=== PATIENT | male | born 1950 | race Two or more races ===

== ENCOUNTER 2020-09-13 05:47 | Day surgery (SDC) | payer MEDICARE, MEDICAID ==
--- NOTE | 2020-08-04 11:34 | Opthalmology H&P ---
Ophthalmology H&P H&P Chief Complaint: decreased vision in right eye HPI Vision Affects Ability to: read, focus/use eyes together, manage personal affairs Past Ocular History: retinal problems - NPDR OU HPI Narrative Blurry vision Exam Visual Acuity: OD 20/60 OS 20/50 Tension: OD 13 OS 16 Eye Exam: normal OU: external exam, palpebral fissure-width, marginal reflex distance, levator function, corneas, anterior chambers; findings: lens - PSC/NS Cataract OD, fundus exam - NPDR OU Assessment/Plan Treatment Plan: cataract extraction w/ lens implant Goals of Treatment: improvement of vision, enhance quality of life Attestation Attestation The risks and benefits of the surgery as well as alternative procedures were explained to the patient in detail. Luciano Ibanez MD Aug 04, 2020 11:34
--- NOTE | 2020-08-04 11:35 | Pre-Procedure Note/Attestation ---
Pre-Procedure Note/Attestation Complete Prior to Procedure Planned Procedure: right Procedure Narrative: Cataract extraction with IOL implant right eye Indications for Procedure Pre-Operative Diagnosis: Posterior subcapsular/ nuclear sclerotic cataract right eye Attestation I attest that I discussed the nature of the procedure; its benefits; risks and complications; and alternatives (and the risks and benefits of such alternatives), prior to the procedure, with the patient (or the patient's legal commercial representative). I attest that, if there was a reasonable possibility of needing a blood transfusion, the patient (or the patient's legal commercial representative) was given the [facility] standardized written summary, pursuant to the [place]ami[place] Blood Safety Act ([place] Health and Safety Code # 1645, as amended). I attest that I re-evaluated the patient just prior to the surgery and that there has been no change in the patient's H&P, except as documented below: Luciano Ibanez MD Aug 04, 2020 11:35
--- NOTE | 2020-09-06 15:16 | Opthalmology H&P ---
Ophthalmology H&P H&P Chief Complaint: decreased vision in left eye HPI Vision Affects Ability to: read, manage personal affairs Past Ocular History: retinal problems - NPDR OU HPI Narrative Blurry vision Exam Visual Acuity: OD 20/60 OS 20/80 Tension: OD 13 OS 12 Eye Exam: normal OU: external exam, palpebral fissure-width, marginal reflex distance, levator function, corneas, anterior chambers, lens - PSC/NS Cataract OD- NS Cataract OS; findings: lens - PSC/NS Cataract OD- NS Cataract OS, fundus exam - NPDR OU Assessment/Plan Treatment Plan: cataract extraction w/ lens implant Goals of Treatment: improvement of vision, enhance quality of life Attestation Attestation The risks and benefits of the surgery as well as alternative procedures were explained to the patient in detail. Luciano Ibanez MD Sep 06, 2020 15:16
--- NOTE | 2020-09-06 15:17 | Pre-Procedure Note/Attestation ---
Pre-Procedure Note/Attestation Complete Prior to Procedure Planned Procedure: left Procedure Narrative: Cataract extraction with IOL implant left eye Indications for Procedure Pre-Operative Diagnosis: Nuclear sclerotic cataract left eye Attestation I attest that I discussed the nature of the procedure; its benefits; risks and complications; and alternatives (and the risks and benefits of such alternatives), prior to the procedure, with the patient (or the patient's legal sales donor recruitment representative). I attest that, if there was a reasonable possibility of needing a blood transfusion, the patient (or the patient's legal sales donor recruitment representative) was given the [facility] standardized written summary, pursuant to the [place] Blood Safety Act ([place] Health and Safety Code # 1645, as amended). I attest that I re-evaluated the patient just prior to the surgery and that there has been no change in the patient's H&P, except as documented below: Luciano Ibanez MD Sep 06, 2020 15:17
[~2020-09-13] VITALS: Ht 165.1 cm; Wt 68.0 kg
[2020-09-13] VITALS (8 sets, daily range): BP systolic 145–158; BP diastolic 70–95
[~2020-09-13 05:47] MED LIST: AMLODIPINE BESYL5 MG ORAL; Akten 3.5% 1ml Btl RIGHT EYE ONE; DIOVAN HCT 1601 EACH ORAL; Diclofenac Sod 0.1% Op Soln RIGHT EYE SCH; MYRBETRIQ25 MG PO; Phenylephrine 10% Opth Soln 5ml RIGHT EYE SCH; Proparacaine 0.5% Opth Soln 15ml RIGHT EYE ONE; TOUJEO SOL300 UNIT/1 SQ; Tetracaine 0.5% Opth 4ml Soln RIGHT EYE ONE; Tobramycin Op Soln 0.3% 5ml RIGHT EYE SCH; Tropicamide 1% Opth 15ml Soln RIGHT EYE SCH; steglatro PO
[2020-09-13] MEDS: Tropicamide 1% Opth 15ml Soln LEFT EYE SCH ×3 (06:30→06:47)
[2020-09-13] MEDS: Phenylephrine 10% Opth Soln 5ml LEFT EYE SCH ×3 (06:31→06:47)
[2020-09-13] MEDS ORDERED: Akten 3.5% 1ml Btl LEFT EYE ONE (07:00)
[2020-09-13] MEDS ORDERED: Proparacaine 0.5% Opth Soln 15ml LEFT EYE ONE (07:00)
[2020-09-13] MEDS ORDERED: Tetracaine 0.5% Opth 4ml Soln LEFT EYE ONE (07:00)
[2020-09-13] MEDS ORDERED: Carbachol 0.01% Op Soln 1.5ml vial ONE (07:16)
[2020-09-13] MEDS ORDERED: Lidocaine 4% Amp 5ml ONE (07:16)
[2020-09-13] MEDS ORDERED: BSS 500ml btl ONE ×2 (07:16→08:15)
[2020-09-13] MEDS ORDERED: acetaZOLAMIDE 500mg Inj ONE (07:16)
[2020-09-13] MEDS ORDERED: EPINEPHrine 1mg/1ml Amp ONE (07:16)
[2020-09-13] MEDS ORDERED: Bupivacaine 0.75% 30ml vial INJ ONE (07:17)
[2020-09-13] MEDS ORDERED: Sodium Hyaluronate 10 mg/ml 0.85ml ONE (07:17)
[2020-09-13] MEDS ORDERED: BSS 15ml BTL ONE (07:17)
[2020-09-13] MEDS ORDERED: Lidocaine 2% MPF 5ml Vial INJ ONE (07:18)
[2020-09-13] MEDS ORDERED: Povidone-Iodine 5% opth solution ONE (07:18)
[2020-09-13] MEDS ORDERED: Sterile Water Irrig 1000ml IRRIG ONE (07:30)
[2020-09-13] MEDS ORDERED: LR 1000ml ONE (07:30)
[2020-09-13] MEDS ORDERED: NS Irrig 1000ml ONE (07:30)
[2020-09-13] MEDS ORDERED: Meperidine 25mg/1ml Inj (FOR RIGORS ONLY) IV PRN (07:45)
[2020-09-13] MEDS ORDERED: Hydromorphone 0.5mg/0.5ml inj IVP PRN (07:45)
[2020-09-13] MEDS ORDERED: HYDROcodone/Acetamin 5/325 tab ORAL PRN (07:45)
[2020-09-13] MEDS ORDERED: DiphenhydrAMINE 50mg/ml Inj IVP PRN (07:45)
[2020-09-13] MEDS ORDERED: Midazolam 2mg/2ml Inj IVP PRN (07:45)
[2020-09-13] MEDS ORDERED: oxyCODONE HCL/Acetaminophen 5/325mg ORAL PRN (07:45)
[2020-09-13] MEDS ORDERED: Atropine Sulfate 0.4mg/ml inj IVP PRN (07:45)
[2020-09-13] MEDS ORDERED: LORazepam Inj 2mg/ml 1ml IV PRN (07:45)
[2020-09-13] MEDS ORDERED: fentaNYL 100 mcg/2 mL IV PRN (07:45)
[2020-09-13] MEDS ORDERED: LR 1000ml 1,000 ML IVLG SCH (07:45)
[2020-09-13] MEDS ORDERED: Ketorolac 30mg Inj IV PRN ×2 (07:45)
[2020-09-13] MEDS ORDERED: HYDROcodone/Acetamin 7.5/325 tab ORAL PRN (07:45)
[2020-09-13] MEDS ORDERED: Metoclopramide 10mg/2ml Inj IVP PRN (07:45)
[2020-09-13] MEDS ORDERED: Labetalol 5mg/ml 20ml vial IV PRN (07:45)
--- NOTE | 2020-09-13 07:51 | Anethesia Preoperative Eval ---
Anesthesia Pre-op PMH/ROS General Date of Evaluation: Sep 13, 2020 Time of Evaluation: 07:38 Anesthesiologist: Sabine ASA Score: ASA 3 Mallampati Score Class I : Soft palate, uvula, fauces, pillars visible Class II: Soft palate, uvula, fauces visible Class III: Soft palate, base of uvula visible Class IV: Only hard plate visible Mallampati Classification: Class II Surgeon: Marcelle Diagnosis: Cataract OS Surgical Procedure: Cat Ext IOL OS Anesthesia History: none Family History: no anesthesia problems Allergies: Coded Allergies: No Known Allergies (Unverified , 09/13/20) Medications: see eMAR Patient NPO?: Yes Past Medical History Cardiovascular: Reports: HTN Gastrointestinal/Genitourinary: Reports: other - BPH Endocrine: Reports: DM HEENT: Reports: cataract (L), cataract (R), glaucoma, NAKNEK (L), NAKNEK (R) Anesthesia Pre-op Phys. Exam Physician Exam Last Vital Signs Date Time Temp Pulse Resp B/P (MAP) Pulse Ox O2 Delivery O2 Flow Rate FiO2 09/13/20 06:20 Room Air 09/13/20 06:19 98.3 70 20 155/95 98 Constitutional: NAD Neurologic: CN 2-12 intact Cardiovascular: RRR Respiratory: CTA Gastrointestinal: S/NT/ND Airway Exam Mallampati Score: Class II MO: limited ROM: limited Teeth: missing Anesthesia Pre-op A/P Risk Assessment & Plan Assessment: ASA 3 Plan: TIVA Status Change Before Surgery: No Stevie Regalado MD Sep 13, 2020 07:51
--- NOTE | 2020-09-13 07:52 | Immediate Post-Op Evaluation ---
Immediate Post-Op Evalulation Immediate Post-Op Evalulation Procedure: Cat Ext IOL OS Date of Evaluation: Sep 13, 2020 Time of Evaluation: 09:09 IV Fluids: 400 LR Blood Products: 0 Estimated Blood Loss: 1 Urinary Output: 0 Blood Pressure Systolic: 155 Blood Pressure Diastolic: 91 Pulse Rate: 69 Respiratory Rate: 16 O2 Sat by Pulse Oximetry: 95 Temperature (Fahrenheit): 98.9 Pain Score (1-10): 1 Nausea: No Vomiting: No Complications 0 Patient Status: awake, reacts, patent, none Hydration Status: adequate Stevie Regalado MD Sep 13, 2020 07:52
--- NOTE | 2020-09-13 07:52 | 48 Hour Post Anesthesia Eval ---
Post Anesthesia Evaluation Procedure: Cat Ext IOL OS Date of Evaluation: Sep 13, 2020 Time of Evaluation: 11:34 Blood Pressure Systolic: 167 0: 89 Pulse Rate: 65 Respiratory Rate: 18 Temperature (Fahrenheit): 98.6 O2 Sat by Pulse Oximetry: 96 Airway: patent Nausea: No Vomiting: No Pain Intensity: 1 Hydration Status: adequate Cardiopulmonary Status: Stable Mental Status/LOC: patient returned to baseline Follow-up Care/Observations: 0 Post-Anesthesia Complications: 0 Follow-up care needed: ready to discharge Stevie Regalado MD Sep 13, 2020 07:52
[2020-09-13] MEDS ORDERED: Sodium Chloride 10ml vial INJ ONE (07:56)
[2020-09-13] MEDS ORDERED: Midazolam 2mg/2ml Inj ONE (07:56)
[2020-09-13] MEDS ORDERED: Lidocaine 1% MPF 10mg/ml 5ml ONE (07:56)
[2020-09-13] MEDS ORDERED: Ciprofloxacin Opth Soln 5ml ONE (08:07)
--- NOTE | 2020-09-13 15:34 | Brief Operative Note ---
Immediate Post Operative Note Operative Note Chief Complaint: Blurry vision Pre-op Diagnosis: Nuclear sclerotic cataract left eye Procedure: Cataract extraction with IOL implant left eye Post-op Diagnosis: Pseudo OS Findings: consistent w/pre-op dx studies Surgeon: Luciano Ibanez MD Anesthesiologist: Stevie Regalado MD Anesthesia: MAC Specimen: none Complications: none Condition: stable Fluids: LR Estimated Blood Loss: none Drains: none Implant(s) used?: Yes - IOL-OS Luciano Ibanez MD Sep 13, 2020 15:34
--- NOTE | 2020-09-13 15:58 | Operative Note - PDOC ---
Operative Note Operative Note Date of Operation/Procedure: Sep 13, 2020 Chief Complaint: Blurry vision Pre-op Diagnosis: Nuclear sclerotic cataract left eye Procedure: Cataract extraction with IOL implant left eye Post-op Diagnosis: Pseudo OS Operative Findings: consistent w/pre-op dx studies Surgeon: Luciano Ibanez MD Anesthesiologist: Stevie Regalado MD Anesthesia: MAC Specimen: none Complications: none Condition: stable Fluids: LR Estimated Blood Loss: none Drains: none Implant(s) used?: Yes - IOL-OS Indications for Procedure Nuclear sclerotic cataract left eye Description of Procedure This patient has been complaining visually significant cataract in the left eye with the best corrected visual acuity of 20/80 under moderate glare conditions worse. The patient complains of difficulties with glare in performing activities of daily living and wants to manage personal affairs with comfort and accuracy and see well enough to move with safety at home and outdoors. The risks, benefits and alternatives of the procedure were discussed with the patient in the office prior to scheduling surgery. All questions from the patient were answered after the surgical procedure was explained in detail. The risks of the procedure as explained to the patient include, but are not limited to, pain, infection, bleeding, loss of vision, retinal detachment, need for further surgery, loss of lens nucleus, double vision, etc. Alternative procedures were discussed which include, to do nothing or seek a second opinion. Informed consent for this procedure was obtained from the patient. The patient was referred to a primary care physician for a cardiopulmonary clearance prior to surgery, after proper evaluation was done patient was properly scheduled for outpatient surgery. The patient was brought to the operating room where the anesthesiologist established I.V. lines and cardiac monitoring leads. Mild intravenous sedation was administered. The patient was then prepared with a 5% solution of povidone-iodine to the conjunctival fornix and lashes, and a 5% solution of povidone-iodine to the lids and periorbital skin. The patient was then draped in the usual sterile fashion. A lid speculum was then placed in the operative eye. A keratome blade was then used to create a biplanar incision into the anterior chamber. Viscoelastics was then instilled into the anterior chamber. A 3-mm single pass clear corneal incision was made just anterior to the vascular arcade of the temporal limbus using a keratome. Anterior capsulorrhexis was created. The nucleus was hydrodissected and hydrodelineated, and was freely movable in the capsular bag. The nucleus was then phacoemulsified. Following the deep groove formation, the lens was split bimanually and epicortex removed under vacuum burst-mode phacoemulsification. Peripheral cortex was removed with the irrigation and aspiration handpiece. The capsular bag was expanded with viscoelastic. The intraocular lens was then inspected for right power and size and thought to be satisfactory. The implant was inspected under the microscope and found to be free of defects. The implant was inserted into the cartridge system under viscoelastic and placed in the capsular bag. The trailing haptic was positioned with the cartridge system. Viscoelastics was removed from the anterior chamber using the irrigation and aspiration unit. The corneal wound was then tested for leaks and none were found. The lid speculum were then removed. Sponge and needle counts were correct. An eye patch and shield were placed over the operative eye. The patient was taken to the recovery room in stable condition. There were no complications. The patient tolerated the procedure well. The patient was then transferred to the ambulatory surgery unit in stable and satisfactory condition, was given detailed written instructions and asked to follow up in the office the next day. Luciano Ibanez MD Sep 13, 2020 15:58
== END 2020-09-13 10:10 | disposition home or self-care (01) ==
LOC: SUR 05:47
DX: H25.12 Age-related nuclear cataract, left eye (principal); I10 Essential (primary) hypertension; E11.9 Type 2 diabetes mellitus without complications
CPT/HCPCS: 66984; 94003; J0171; J2250; J2704; J3370; J7120; U0004; V2632; 94150